=== PATIENT | male | born 1985 ===

== ENCOUNTER 2017-11-01 22:01 | Emergency (ER) | payer SELFPAY ==
[2017-11-01 22:09] VITALS: BP 126/76; PULSE 84; RESP 17; TEMP 98.2; O2SAT 96
--- NOTE | 2017-11-01 22:38 | ED PDOC ---
HPI: CCC, URI, Sore Throat Time Seen by Provider: 11/01/17 22:09 Chief Complaint (Nursing): ENT Problem Chief Complaint (Provider): Ear Pain History Per: Patient Onset/Duration Of Symptoms: Mins Location Of Pain: Ear(s) Additional Complaint(s): Patient is a 32 year old male who presents to ED with complaints of left ear discomfort. Patient reports the feeling as if he has a bug in his left ear since just prior to arrival. Patient states he feels something moving and hears a buzzing sound. No medications were taken prior to arrival. No other complaints at present. PMD: none provided. Past Medical History Reviewed: Historical Data, Nursing Documentation, Vital Signs Vital Signs: Last Vital Signs Temp 98.2 F 11/01/17 22:06 Pulse 84 11/01/17 22:06 Resp 17 11/01/17 22:06 BP 126/76 11/01/17 22:06 Pulse Ox 96 11/01/17 23:49 - Medical History PMH: No Chronic Diseases - Surgical History Surgical History: No Surg Hx - Family History Family History: States: Unknown Family Hx - Social History Current smoker - smoking cessation education provided: No Alcohol: None Drugs: Denies - Home Medications Home Medications: Ambulatory Orders Medication Instructions Recorded Naproxen 500 mg PO BID PRN #20 tab 11/01/17 Neomycin/Polymyxin/Hydrocort 4 drop Q6 #1 bottle 11/01/17 [Cortisporin Otic Soln] - Allergies Allergies/Adverse Reactions: Allergies Allergy/AdvReac Type Severity Reaction Status Date / Time No Known Allergies Allergy Verified 11/01/17 22:09 Review of Systems ROS Statement: Except As Marked, All Systems Reviewed And Found Negative ENT: Positive for: Ear Pain Physical Exam - Reviewed Nursing Documentation Reviewed: Yes Vital Signs Reviewed: Yes - Physical Exam Appears: Positive for: Well, Non-toxic, Uncomfortable Head Exam: Positive for: ATRAUMATIC, NORMOCEPHALIC Skin: Positive for: Normal Color, Warm, Dry Eye Exam: Positive for: Normal appearance, EOMI, PERRL ENT: Positive for: Pharynx Is (clear, uvula midline), TM Is/Are (Right TM nonbulging and nonerythematous. Left TM: unable to visualize. Left ear canal occluded by insect.), Other (Mucus Membranes Moist. Airway Patent, (-) stridor.) . Negative for: Nasal Congestion, Pharyngeal Erythema, Tonsillar Exudate Neck: Positive for: Painless ROM, Supple Cardiovascular/Chest: Positive for: Regular Rate, Rhythm Respiratory: Positive for: Normal Breath Sounds. Negative for: Respiratory Distress Extremity: Positive for: Normal ROM Neurologic/Psych: Positive for: Alert, Oriented (x3), Gait (steady). Negative for: Aphasia, Facial Droop - ECG O2 Sat by Pulse Oximetry: 96 (RA) Pulse Ox Interpretation: Normal Medical Decision Making Medical Decision Makin Initial Impression: Insect in left ear canal Plan: -Viscous Lidocaine -Ibuprofen 600mg PO -Removal of insect from ear canal 2339 Ear canal filled with viscous lidocaine 3mL. 15 minutes afterwards, intact insect removed from ear canal with alligator forcep by Melba SELF. Visualized TM s/p insect removal is WNL. Multiple abrasions of ear canal noted- will prescribe Rx Cortisporin Otic Solution. Patient reporting immediate improvement of symptoms. On exam, patient remains AAOx3, in no acute distress. On exam, neck is supple, lungs CTA, cardiac RRR, neuro exam shows no focal findings. VSS, stable for discharge. Diagnostic results d/w the patient in great detail. Dx of foreign body(insect) removal of ear d/w the patient. Based on history, exam and diagnostic results plan will be for discharge and outpatient follow up. Advised to follow up with primary care physician/clinic in 1-2 days without fail. Advised to take medication as prescribed. Return to the emergency room at any time for any new or worsening symptoms. Patient states he fully agrees with and understands discharge instructions. States that he agrees with the plan and disposition. Verbalized and repeated discharge instructions and plan. I have given the patient opportunity to ask any additional questions. Disposition - Clinical Impression Clinical Impression: Left ear pain, Foreign body of ear, left - Patient ED Disposition Is Patient to be Admitted: No Counseled Patient/Family Regarding: Studies Performed, Diagnosis, Need For Followup, Rx Given - Disposition Referrals: [facility] [Outside] Disposition: Routine/Home Disposition Time: 23:40 Condition: STABLE Additional Instructions: FOLLOW UP WITH CLINIC/PMD NEEDED. RETURN TO ED WITH ANY NEW OR WORSENING SYMPTOMS. Prescriptions: Naproxen 500 mg PO BID PRN #20 tab PRN Reason: Pain, Moderate (4-7) Neomycin/Polymyxin/Hydrocort [Cortisporin Otic Soln] 4 drop Q6 #1 bottle Instructions: Removing Objects Stuck in the Ear Forms: [employer] ([place]ian) Print Language: WOLOF - GUSTAVO Present On Arrival: None
== END 2017-11-01 23:51 | disposition home or self-care (01) ==
LOC: H.ER 22:01
DX: T16.2XXA Foreign body in left ear, initial encounter (principal)